=== PATIENT | female | born 1960 | race Caucasian/White ===

== ENCOUNTER → 2018-09-18 | Outpatient (CLI) | payer OTHER ==
[2018-09-18 09:05] LABS: ALBUMIN 3.7 g/dL (3.4-5.0); ALBUMIN/GLOBULIN RATIO 1.2 (1.0-1.7); CALCIUM 8.6 mg/dL (8.5-10.1); CREATININE 0.7 mg/dL (0.6-1.0); GFR 85.4; TOTAL BILIRUBIN 0.5 mg/dL (0.2-1.0); TOTAL PROTEIN 6.7 g/dL (6.4-8.2)
[2018-09-18 09:07] LABS: CHOLESTEROL/HDL RATIO 2.8
== END | disposition home or self-care (01) ==
LOC: OPS 08:17
PROVIDERS: ATTEND Physician Assistant Surgical
DX: E78.5 Hyperlipidemia, unspecified (principal)
CPT/HCPCS: 36415; 80053; 80061

== ENCOUNTER → 2018-10-15 | Outpatient (CLI) | payer OTHER ==
--- NOTE | 2018-10-15 17:39 | KCIC ---
Bilateral digital screening mammograms with 3-D tomosynthesis: Reason for examination: Routine screening. Comparison is made to previous studies dated 10/14/2017 and 09/16/2015. Bilateral mammograms in CC and oblique projections were obtained with 2-D imaging and 3-D tomosynthesis imaging on a Siemens Inspiration unit and reviewed on the workstation. Interpretation was made with the benefit of CAD. The skin and nipples show no abnormalities. No abnormal axillary lymph nodes are seen. The breast parenchyma is extremely dense. (Breast density: Category D.) There are no dominant masses, suspicious calcifications or architectural distortion. Benign calcifications are present. Impression: No evidence of malignancy. Recommend routine screening. Your patient's mammogram demonstrates that she has dense breast tissue (breast density category C or D), which could hide abnormalities, and if she has other risk factors for breast cancer that have been identified, she might benefit from supplemental screening tests that may be suggested by you as her ordering physician. Dense breast tissue, in and of itself, is a relatively common condition. Therefore, this information is not provided to cause undue concern, but rather to raise your awareness and to promote discussion with your patient regarding the presence of other risk factors, in addition to dense breast tissue. Your patient's mammography results will be sent to her. BI-RAD Category 2: Benign. "Our facility is accredited by the [employer] Mammography [employer]." This patient's information has been entered into a reminder system for the patient to be notified with the results of her examination and a target date for the next mammogram. Electronically signed by: Sara Beth MD (10/15/2018 5:35 PM) [id number]
== END | disposition home or self-care (01) ==
LOC: KCIC MAMMO 14:14
PROVIDERS: ATTEND Obstetrics & Gynecology
DX: Z12.31 Encounter for screening mammogram for malignant neoplasm of breast (principal)
CPT/HCPCS: 77063; 77067

== ENCOUNTER → 2019-10-21 | Outpatient (CLI) | payer OTHER ==
--- NOTE | 2019-10-22 16:44 | KCIC ---
Bilateral digital screening mammograms with 3-D tomosynthesis: Reason for examination: Routine screening. Comparison is made to previous studies dated 10/15/2018 and 10/14/2017. Bilateral mammograms in CC and oblique projections were obtained with 2-D imaging and 3-D tomosynthesis imaging on a Siemens Inspiration unit and reviewed on the workstation. Interpretation was made with the benefit of CAD. The skin and nipples show no abnormalities. No abnormal axillary lymph nodes are seen. The breast parenchyma is extremely dense. (Breast density: Category D.) There appears to be a nodular density present anteriorly inferiorly in the left breast which is seen best on oblique view probably around the 6:00 to 7:00 position. Recommend further evaluation with ultrasound. There are no other dominant masses, suspicious calcifications or architectural distortion evident. Benign calcifications are present. Impression: Extremely dense breast parenchyma. There appears to be a nodular density anterior and inferiorly in the left breast on oblique view. Recommend further evaluation with ultrasound. Your patient's mammogram demonstrates that she has dense breast tissue (breast density category C or D), which could hide abnormalities, and if she has other risk factors for breast cancer that have been identified, she might benefit from supplemental screening tests that may be suggested by you as her ordering physician. Dense breast tissue, in and of itself, is a relatively common condition. Therefore, this information is not provided to cause undue concern, but rather to raise your awareness and to promote discussion with your patient regarding the presence of other risk factors, in addition to dense breast tissue. Your patient's mammography results will be sent to her. BI-RAD Category 0: Incomplete. Needs additional imaging evaluation. "Our facility is accredited by the [employer]ammography [employer]." This patient's information has been entered into a reminder system for the patient to be notified with the results of her examination and a target date for the next mammogram. Electronically signed by: Sara Beth MD (10/22/2019 4:41 PM) [facility]
== END | disposition home or self-care (01) ==
LOC: KCIC MAMMO 15:12
PROVIDERS: ATTEND Obstetrics & Gynecology
DX: Z12.31 Encounter for screening mammogram for malignant neoplasm of breast (principal); N64.89 Other specified disorders of breast
CPT/HCPCS: 77063; 77067

== ENCOUNTER → 2019-10-26 | Outpatient (CLI) | payer OTHER ==
--- NOTE | 2019-10-26 11:51 | RAD ---
LEFT BREAST SONOGRAPHY Clinical indications: Further evaluation of the inferior retroareolar nodular density seen on screening mammogram dated October 21, 2019. No palpable lump. FINDINGS: High-resolution sonography of the retroareolar and inferior aspect of the left breast was performed. Retroareolar ductal ectasia is seen without soft tissue nodule or abnormal vascularity. No other focal sonographic abnormality is seen otherwise. Consistent with a benign finding IMPRESSION: Benign finding of the left breast. Recommend bilateral screening mammography in one year. BI-RADS Category 2 benign finding The patient information was entered into the data reminder system with a target due date for the next mammogram of October 22, 2020. Electronically signed by: Romel Michaels MD (10/26/2019 11:48 AM) [facility]
== END | disposition home or self-care (01) ==
LOC: US 10:54
PROVIDERS: ATTEND Obstetrics & Gynecology
DX: N60.42 Mammary duct ectasia of left breast (principal)
CPT/HCPCS: 76641

== ENCOUNTER → 2020-10-24 | Outpatient (CLI) | payer OTHER ==
--- NOTE | 2020-10-24 16:49 | KCIC ---
Bilateral digital screening mammograms with 3-D tomosynthesis: Reason for examination: Routine screening. Comparison is made to previous studies dated back to 09/16/2015. Bilateral mammograms in CC and oblique projections were obtained with 2-D imaging and 3-D tomosynthes is imaging on a Siemens Inspiration unit and reviewed on the workstation. Interpretation was made wit h the benefit of CAD. The skin and nipples show no abnormalities. No abnormal axillary lymph nodes are seen. The breast par enchyma is extremely dense. (Breast density: Category D.) There are no dominant masses, suspicious ca lcifications or architectural distortion. Benign calcifications are present. Impression: No evidence of malignancy. Recommend routine screening. Your patient's mammogram demonstrates that she has dense breast tissue (breast density category C or D), which could hide abnormalities, and if she has other risk factors for breast cancer that have bee n identified, she might benefit from supplemental screening tests that may be suggested by you as her ordering physician. Dense breast tissue, in and of itself, is a relatively common condition. Therefo re, this information is not provided to cause undue concern, but rather to raise your awareness and t o promote discussion with your patient regarding the presence of other risk factors, in addition to d ense breast tissue. Your patient's mammography results will be sent to her. BI-RAD Category 2: Benign. "Our facility is accredited by the [employer] Mammography Program." This patient's information has been entered into a reminder system for the patient to be notified wit h the results of her examination and a target date for the next mammogram. Electronically signed by: Sara Beth MD (10/24/2020 4:47 PM) [facility]
== END ==
LOC: KCIC MAMMO 09:45
PROVIDERS: ATTEND Family Medicine
DX: Z12.31 Encounter for screening mammogram for malignant neoplasm of breast (principal)
CPT/HCPCS: 77063; 77067

== ENCOUNTER 2021-10-07 17:41 | Emergency (ER) | payer OTHER ==
[~2021-10-07 17:41] MED LIST: AMIODARONE 150 MG/3 ML VIAL ONE; CALCIUM CHLORIDE 1,000 MG/10 ML DISP.SYRIN ONE; EPINEPHrine SYRINGE 1 MG/10 ML SYRINGE ONE; SODIUM BICARB ADULT 8.4% 50 MEQ/50 ML DISP.SYRIN. ONE
[2021-10-07 18:01] LABS: BASO # 0.1 x10^3/uL (0.0-0.2); BASO % 1 % (0-3); EOS % 0 % (0-3); HEMATOCRIT 47.9 % (36.0-47.0); LYMPH # 4.8 x10^3/uL (1.0-4.8); LYMPH % 45 % (24-48); MEAN CORPUSCULAR HEMOGLOBIN 33 pg (25-35); MEAN CORPUSCULAR HGB CONC 31 g/dL (31-37); MEAN CORPUSCULAR VOLUME 104 fL (79-100); MONO # 0.3 x10^3/uL (0.0-1.1); MONO % 3 % (0-9); NEUT # 5.5 x10^3/uL (1.8-7.7); NEUT % 51 % (31-73); PLATELET COUNT 187 x10^3/uL (140-400); RED BLOOD COUNT 4.62 x10^6/uL (3.50-5.40); RED CELL DISTRIBUTION WIDTH 14.7 % (11.5-14.5); WHITE BLOOD COUNT 10.7 x10^3/uL (4.0-11.0)
[2021-10-07 18:07] LABS: PROTHROMBIN TIME PATIENT 17.5 SEC (11.7-14.0)
[2021-10-07 18:11] LABS: CALCIUM 8.9 mg/dL (8.5-10.1); CREATININE 1.7 mg/dL (0.6-1.0); GFR 30.4; POTASSIUM 3.1 mmol/L (3.5-5.1)
[2021-10-07 18:17] LABS: ALBUMIN 3.3 g/dL (3.4-5.0); MAGNESIUM 3.3 mg/dL (1.8-2.4); TOTAL BILIRUBIN 0.4 mg/dL (0.2-1.0); TOTAL PROTEIN 6.6 g/dL (6.4-8.2)
[2021-10-07 18:29] VITALS: BP 74/51
[2021-10-07] MEDS ORDERED: IV NORMAL SALINE 1000ML BAG 1,000 ML IV ONE (18:30)
[2021-10-07 18:31] LABS: % ATYL 4 % (0-0); % BANDS 5 % (0-9); % LYMPHS 40 % (24-48); % MONOS 4 % (0-10); % SEGS 47 % (35-66)
[2021-10-07 18:34] LABS: PLT ESTIMATE ADEQUATE (ADEQUATE)
--- NOTE | 2021-10-07 18:37 | EKG ---
[facility] [address] [place] [address] Test Date: 2021-10-07 Test Time: 17:47:49 Pat Name: IFRAH YUEN Department: Room: Gender: F Manager Of Planning: : 1960 Requested By: CELIO CONWAY Order Number: [id number] Reading MD: Lavon Gutierrez Measurements Intervals [place] Rate: 128 P: AL: QRS: 121 QRSD: 158 T: -53 QT: 326 QTc: 479 Interpretive Statements IRREGULAR RHYTHM, NO P-WAVE FOUND VENTRICULAR PREMATURE COMPLEX(ES) ABNORMAL RIGHT AXIS DEVIATION NON SPECIFIC INTRAVENTRICULAR BLOCK Electronically Signed On 10-09-2021 9:50:18 [employer] by Lavon Gutierrez
--- NOTE | 2021-10-07 18:37 | PHYS DOC ---
Past Medical History Past Medical History: High Cholesterol Past Medical History Unable to obtain secondary to cardiopulmonary arrest Past Surgical History: No Surgical History Past Surgical History Unable to obtain secondary to cardiopulmonary arrest Smoking Status: Current Every Day Smoker Alcohol Use: Rarely Drug Use: None Social History Unable to obtain secondary to cardiopulmonary arrest General Adult EDM: Chief Complaint: CPR/FULL ARREST HPI: HPI: 61-year-old female presents via EMS with report of cardiopulmonary arrest with unknown downtime. Family reports patient was last contacted at 1545. Patient had been acting normally today and had denied any illness. Spouse tried calling patient at approximately [address] home and was unsuccessful in contacting her. Spouse reports he arrived at the home at approximately 1700 and subsequently found patient upstairs face down, unresponsive, and without a pulse. Spouse called 911 and was instructed to perform CPR. EMS reports upon their arrival patient was in a PEA arrest. ACLS protocol was utilized. The utilization of a mechanical compression device was performed. A 7.0 ET tube was also placed. EMS reports giving multiple rounds of epi without return of spontaneous circulation. Pre-hospital blood glucose was 194. History of present illness limited secondary to cardiopulmonary arrest. Review of Systems: Review of Systems: Review of systems limited secondary to cardiopulmonary arrest. Heart Score: C/O Chest Pain: N/A Allergies: Allergies: Allergies Coded Allergies Type Severity Reaction Last Updated Verified codeine Adverse Reaction Severe hallucinations 06/26/18 Yes morphine Adverse Reaction Severe Itching 06/26/18 Yes Physical Exam: PE: Constitutional: Unresponsive, ill appearance HENT: Normocephalic, atraumatic, ETT in place and noted to be 25cm at the lips, scant blood discharge from nasopharyngeal airway to left nare and in ETT Eyes: Pupils dilated and nonresponsive to light, conjunctiva normal, no discharge Neck: Trachea midline, supple Lungs & Thorax: Coarse breath sounds noted with bag valve mask, equal chest rise and fall Abdomen: Mild distention, no fluid wave Skin: Warm, dry, peripheral cyanosis Extremities: No deformity, ROM intact, prehospital right tibial IO noted and easily flushes. Neurologic: GCS 3, limited EKG: EKG: @1747 Idioventricular rate at 128bpm, QRS 158ms, QT/QTc 326/479ms Radiology/Procedures: Radiology/Procedures: [] Course & Med Decision Making: Course & Med Decision Making Pertinent Lab studies reviewed. (See chart for details) Patient presents via EMS in cardiopulmonary arrest. Initial rhythm reported to be PEA by EMS. ACLS protocol utilized with mechanical compressions, multiple rounds of epi provided, and successful intubation. Upon arrival patient still without pulse and noted to again be in PEA arrest. Continuation of ACLS protocol utilized. 2 additional rounds of epinephrine provided with successful return of spontaneous circulation which was noted on bedside cardiac ultrasound and palpation of carotid vessels. A 12-lead EKG was performed that noted SAAD ventricular rhythm. Discussed case with Dr. Thompson (cardiology) and EKG was reviewed. Labs obtained with significant elevation of Troponin. High likelihood of cardiac arrest as primary etiology. Patient subsequently lost pulse. Decision to hold STEMI activation and confirmed by Dr. Weber given unstable nature. Continuation of ACLS protocol with additional rounds of epinephrine, bicarb, and calcium. Patient continued to have return of spontaneous circulation with subsequent loss. During resuscitation efforts there was 2 episodes of V. fib which were defibrillated and patient was given 1 round of 150 mg of amiodarone while patient did have a pulse. Multiple discussion was provided by myself with family regarding patient's dire circumstances and high likelihood of anoxic brain injury. After further discussion with family it was decided to discontinue any further resuscitation efforts despite patient currently having a pulse and blood pressure. The ventilator was discontinued and patient was allowed to peacefully per spouse's wishes. Time of was called at 1843. No cardiac activity was confirmed on bedside cardiac ultrasound. Dr. Hart (PCP) was contacted who is agreeable to sign certificate. Dragon Disclaimer: Dragon Disclaimer: This electronic medical record was generated, in whole or in part, using a voice recognition dictation system. Departure Departure Impression: Primary Impression: Cardiopulmonary arrest Disposition: 20 Condition: Referrals: SHERI VALERIO MD (PCP) Critical Care Time Critical care time was 30 minutes which includes time at bedside, spent in discussion of patient's care with specialists and/or family members, with interpretation of laboratory and/or radiological studies and is exclusive of procedures. CELIO CONWAY DO Oct 07, 2021 18:37
== END 2021-10-07 21:29 ==
LOC: ER 17:41
DX: I46.9 Cardiac arrest, cause unspecified (principal); E78.00 Pure hypercholesterolemia, unspecified; F17.200 Nicotine dependence, unspecified, uncomplicated; Z88.5 Allergy status to narcotic agent
CPT/HCPCS: 31500; 36415; 51702; 80053; 83690; 83735; 83880; 84484; 85007; 85025; 85610; 92950; 93005; 96360; 99291; J0171; J0282; J3490; J7030; 94003